=== PATIENT | female | born 1965 | race American Indian/Alaskan Native ===

== ENCOUNTER 2021-04-10 14:17 | Outpatient (CLI) | payer OTHER ==
--- NOTE | 2021-04-10 15:46 | XRay Report ---
CHEST 2 VIEWS INDICATION: R07.9 CHEST PAIN. COMPARISON: None. FINDINGS: Support devices: None. Heart: Within normal limits. Lungs/Pleura: No acute air space or interstitial disease. No significant pleural effusion. IMPRESSION: No acute findings. Signer Name: Yovani Sevilla MD Signed: 04/10/2021 3:35 PM Workstation Name: [id number]
== END 2021-04-10 14:18 | disposition home or self-care (01) ==
LOC: XRAY 14:17
PROVIDERS: ATTEND Family Medicine
DX: R07.9 Chest pain, unspecified (principal)
CPT/HCPCS: 71046